=== PATIENT | female | born 1995 | race Two or more races ===

== ENCOUNTER 2019-02-10 15:47 | Emergency (ER) | payer OTHER, MEDICAID ==
[~2019-02-10] VITALS: Ht 165.1 cm; Wt 69.9 kg
[2019-02-10 15:50] VITALS: BP 143/70
[2019-02-10 16:14] LABS: Basophils # (auto) 0 uL; Basophils % (auto) 0.3 % (0.0-2.0); Eosinophils # (auto) 0 uL; Eosinophils % (auto) 0.6 % (0.0-7.0); Hemoglobin 13.4 g/dL (12.2-16.2); Lymphocytes # (auto) 0.4 uL; Lymphocytes % (auto) 10.1 % (10.0-50.0); Mean Corpuscular Hemoglobin 29.1 pg (28.0-32.0); Mean Corpuscular Hgb Conc. 34.4 g/dL (32.0-36.0); Mean Corpuscular Volume 84.8 fL (80.0-100.0); Monocytes # (auto) 0.3 uL; Neutrophils # (auto) 3.3 uL; Nucleated Red Blood Cells % 0.1 %; Platelet Count (auto) 249 10^3/uL (140-450)
[2019-02-10 16:39] LABS: Albumin 4.1 g/dL (3.4-5.0); BUN/Creatinine Ratio 9.6; Calcium 9.3 mg/dL (8.5-10.1); Potassium 3.4 mmol/L (3.5-5.1)
[2019-02-10 16:42] LABS: Bilirubin, Total 0.5 mg/dL (0.2-1.0); Total Protein 8.5 g/dL (6.4-8.2)
== END 2019-02-10 21:55 | disposition left against medical advice (07) ==
LOC: ER 15:47
DX: R50.9 Fever, unspecified (principal); R53.1 Weakness; Z53.21 Procedure and treatment not carried out due to patient leaving prior to being seen by health care provider
CPT/HCPCS: 36415; 80053; 85025